=== PATIENT | male | born 1975 | race Caucasian/White ===

== ENCOUNTER 2019-11-16 20:20 | Inpatient (IN) ==
[2019-11-16 20:35] VITALS: BMI 35.9
--- NOTE | 2019-11-16 20:45 | DR.SOBA ---
HPI Time Seen Time Seen by Provider: 11/16/19 20:32 ROS Review of Systems Constitutional: No Symptoms Reported and See HPI Eyes: No Symptoms Reported and See HPI ENTM: No Symptoms Reported and See HPI Respiratoy: No Symptoms Reported and See HPI Cardiovascular: No Symptoms Reported and See HPI Gastrointestinal/Abdominal: No Symptoms Reported and See HPI Genitourinary: No Symptoms Reported and See HPI Neurological: No Symptoms Reported and See HPI Musculoskeletal: No Symptoms Reported and See HPI Integumentary: No Symptoms Reported and See HPI Hematologic/Lymphatic: No Symptoms Reported and See HPI Endocrine: No Symptoms Reported and See HPI Psychiatric: No Symptoms Reported and See HPI All Other Systems: Reviewed and Negative PE Vital Signs Vitals: Temperature 98.5 F Pulse Rate 100 Respiratory Rate 28 Blood Pressure 119/63 O2 Sat by Pulse Oximetry 100 General Limitations: No Limitations General Appearance: Alert and In No Apparent Distress Head Head Exam: Normal Inspection Eyes Eye exam: Normal Appearance ENT ENT Exam: Normal Exam Neck Neck Exam: Normal Inspection Chest Chest Inspection: Normal Inspection Respiratory Respiratory Exam: Normal Lung Sounds Bilat Respiratory Exam: Bilateral: Clear to Auscultation Cardiovascular Cardiovascular Exam: Regular Rate and Normal Rhythm Abdominal Exam Abdominal Exam: Normal Inspection, Normal Bowel Sounds and Soft Extremities Extremities Exam: Normal Inspection Back Back Exam: Normal Inspection Neurologic Neurological Exam: Alert and Oriented X3 Psychiatric Psychiatric Exam: Normal Affect and Normal Mood Skin Skin Exam: Warm, Dry, Intact and Normal Color ROR Labs Reviewed Result Diagrams: 11/18/19 05:33 11/18/19 05:33 Laboratory: WBC 5.7 X10^3/uL (3.6-10.0) 11/16/19 21:06 RBC 5.59 X10^6/uL (4.7-6.0) 11/16/19 21:06 Hgb 16.8 g/dL (13.5-18.0) 11/16/19 21:06 Hct 47.8 % (42.0-54.0) 11/16/19 21:06 MCV 85.5 fL (80.0-100.0) 11/16/19 21:06 MCH 30.0 pg (27.0-34.0) 11/16/19 21:06 MCHC 35.1 g/dL (33.0-35.0) H 11/16/19 21:06 RDW 14.1 % (11.6-16.5) 11/16/19 21:06 Plt Count 163 X10^3/uL (150.0-450.0) 11/16/19 21:06 MPV 8.6 fL (7.4-11.0) 11/16/19 21:06 Neut % (Auto) 65.0 % (42.0-75.0) 11/16/19 21:06 Lymph % (Auto) 25.5 % (21.0-51.0) 11/16/19 21:06 Mora % (Auto) 9.1 % (0.0-13.0) 11/16/19 21:06 Eos % (Auto) 0.1 % (0.9-2.9) L 11/16/19 21:06 Baso % (Auto) 0.3 % (0.2-1.0) 11/16/19 21:06 Neut # (Auto) 3.7 x10^3/uL (2.2-4.8) 11/16/19 21:06 Lymph # (Auto) 1.5 X10^3/uL (1.3-2.9) 11/16/19 21:06 Mora # (Auto) 0.5 x10^3/uL (0.3-0.8) 11/16/19 21:06 Eos # (Auto) 0.0 x10^3/uL (0.0-0.2) 11/16/19 21:06 Baso # (Auto) 0.0 X10^3/uL (0.0-0.1) 11/16/19 21:06 Absolute Nucleated RBC 0.0 /100WBC 11/16/19 21:06 Sample Site Rr 11/16/19 22:28 ABG pH 7.520 (7.35-7.45) H 11/16/19 22:28 ABG pCO2 28.0 mmHg (35.0-45.0) L 11/16/19 22:28 ABG pO2 61.0 mmHg (80.0-100.0) L 11/16/19 22:28 ABG HCO3 22.9 mmol/L (22-26) 11/16/19 22:28 ABG O2 Saturation 94.0 % (90-100) 11/16/19 22:28 ABG Base Excess 1.0 mmol/L (-2.0-2.0) 11/16/19 22:28 Bertram Test Pos 11/16/19 22:28 A-a Gradient 54.0 mmHg 11/16/19 22:28 FiO2 21.0 11/16/19 22:28 Blood Gas Comments Dheeraj well sw 11/16/19 22:28 Sodium 135 mmol/L (136-145) L 11/16/19 21:06 Corrected Sodium TNP 11/16/19 21:06 Potassium 3.4 mmol/L (3.5-5.1) L 11/16/19 21:06 Chloride 98 mmol/L (98-107) 11/16/19 21:06 Carbon Dioxide 24.2 mmol/L (21-32) 11/16/19 21:06 BUN 32 mg/dL (7-18) H 11/16/19 21:06 Creatinine 2.13 mg/dL (0.70-1.30) H 11/16/19 21:06 Est GFR (MDRD) Af Amer 43 (>60) L 11/16/19 21:06 Est GFR (MDRD) Non-Af 36 (>60) L 11/16/19 21:06 Glucose 103 mg/dL (65-99) H 11/16/19 21:06 Lactic Acid 2.0 mmol/L (0.4-2.0) 11/16/19 21:06 Calcium 9.2 mg/dL (8.5-10.1) 11/16/19 21:06 Corrected Calcium TNP 11/16/19 21:06 Ferritin 654 ng/mL (26-388) H 11/16/19 21:06 Total Bilirubin 0.50 mg/dL (0.2-1.0) 11/16/19 21:06 AST 33 Units/L (15-37) 11/16/19 21:06 ALT 48 Units/L (12-78) 11/16/19 21:06 Alkaline Phosphatase 51 Units/L (46-116) 11/16/19 21:06 Lactate Dehydrogenase 270 Units/L (85-227) H 11/16/19 21:06 Creatine Kinase 163 Units/L (39-308) 11/16/19 21:06 CK-MB (CK-2) < 1.0 ng/mL (0-4.0) 11/16/19 21:06 CK/CKMB % Calc 0.6 % (<4) 11/16/19 21:06 Troponin I < 0.02 ng/mL (0-1.5) 11/16/19 21:06 C-Reactive Protein 0.90 mg/L (0-3.0) 11/16/19 21:06 Total Protein 8.6 g/dL (6.4-8.2) H 11/16/19 21:06 Albumin 4.0 g/dL (3.4-5.0) 11/16/19 21:06 Globulin 4.6 g/dL (2.5-4.5) H 11/16/19 21:06 Albumin/Globulin Ratio 0.9 Ratio (1.1-2.1) L 11/16/19 21:06 Specimen Type Clean catch urine 11/16/19 22:12 Urine Color Yellow (YELLOW) 11/16/19 22:12 Urine Appearance Clear (CLEAR) 11/16/19 22:12 Urine pH 5.0 (5.0 - 8.0) 11/16/19 22:12 Ur Specific Samson 1.020 (1.000-1.030) 11/16/19 22:12 Urine Protein 1+ (NEGATIVE) 11/16/19 22:12 Urine Glucose (UA) Negative (NEGATIVE) 11/16/19 22:12 Urine Ketones Negative (NEGATIVE) 11/16/19 22:12 Urine Occult Blood 1+ (NEGATIVE) 11/16/19 22:12 Urine Nitrite Negative (NEGATIVE) 11/16/19 22:12 Urine Bilirubin Negative (NEGATIVE) 11/16/19 22:12 Urine Urobilinogen Normal (NORMAL) 11/16/19 22:12 Ur Leukocyte Esterase Negative (NEGATIVE) 11/16/19 22:12 Urine RBC 0-2 /HPF (0-3) 11/16/19 22:12 Urine WBC None seen /HPF (0-5) 11/16/19 22:12 Ur Squamous Epith Cells Negative /HPF (NEGATIVE) 11/16/19 22:12 Urine Bacteria Negative /HPF (NEGATIVE) 11/16/19 22:12 Ur Culture Indicated? No/not indicated 11/16/19 22:12 Opioid Opioid Risk Tool Total: 0 Total Score Risk Category: Low Risk Copyright: Rodrigo EAGLE predicting aberrant behaviors Diagnosis Discharge Problem: Hypoxia, SOB (shortness of breath), Acute dehydration Pneumonia Qualifiers: Pneumonia type: due to unspecified organism Laterality: bilateral Lung location: lower lobe of lung Qualified Code(s): J18.9 - Pneumonia, unspecified organism Instructions Instructions: Shortness of Breath, Adult, Umfd-mu-Edyn Dehydration, Adult, Wppp-fu-Jltu Home Oxygen Use, Adult Hand Washing, Dqhi-xr-Uzoe Upper Respiratory Infection, Adult, Clal-yx-Ruiz Hypoxia Fever, Adult Droplet Precautions, Pool-hy-Jeii Contact Precautions, Smci-cm-Iocc How to Use a Nebulizer, Adult Hypertension, Pbwo-gd-Wvvu Community-Acquired Pneumonia, Adult, Yzci-sy-Pmwh Forms: Convalescent Plasma Precautions for COVID19 Patient Portal Social Distancing
[2019-11-16 21:22] LABS: BASOPHILS % (AUTO) 0.3 % (0.2-1.0); EOSINOPHILS % (AUTO) 0.1 % (0.9-2.9); HEMATOCRIT 47.8 % (42.0-54.0); HEMOGLOBIN 16.8 g/dL (13.5-18.0); LYMPHOCYTES # (AUTO) 1.5 X10^3/uL (1.3-2.9); LYMPHOCYTES % (AUTO) 25.5 % (21.0-51.0); MEAN CORPUSCULAR HGB CONC 35.1 g/dL (33.0-35.0); MEAN CORPUSCULAR VOLUME 85.5 fL (80.0-100.0); MEAN PLATELET VOLUME 8.6 fL (7.4-11.0); MONOCYTES # (AUTO) 0.5 x10^3/uL (0.3-0.8); MONOCYTES % (AUTO) 9.1 % (0.0-13.0); NEUTROPHILS # (AUTO) 3.7 x10^3/uL (2.2-4.8); PLATELET COUNT 163 X10^3/uL (150.0-450.0); RED BLOOD COUNT 5.59 X10^6/uL (4.7-6.0); RED CELL DISTRIBUTION WIDTH 14.1 % (11.6-16.5); WHITE BLOOD COUNT 5.7 X10^3/uL (3.6-10.0)
--- NOTE | 2019-11-16 21:44 | RAD ---
CHEST, 1 VIEWHISTORY: SOBStudy: Single view of the chest.Comparison:NoneFindings:The cardiomediastinal silhouette is normal. Bilateral interstitial prominence, possible early alveolar infiltrates. No focal consolidations, pleural effusions or pneumothorax. Osseous structures demonstrate no acute abnormality.IMPRESSION:1. Bilateral interstitial prominence and early alveolar infiltrates. Findings may represent atypical infection, including viral etiologies.Electronically signed by: DEJA PELAYO (Nov 16, 2019 21:43:53)
[2019-11-16 21:59] LABS: BLOOD UREA NITROGEN 32 mg/dL (7-18); CALCIUM 9.2 mg/dL (8.5-10.1); CARBON DIOXIDE 24.2 mmol/L (21-32); CHLORIDE 98 mmol/L (98-107); CREATININE 2.13 mg/dL (0.70-1.30); SODIUM 135 mmol/L (136-145); TROPONIN I < 0.02 ng/mL (0-1.5); eGFR NON BLACK RACES 36 (>60)
[2019-11-16 22:19] LABS: ALANINE AMINOTRANSFERASE 48 Units/L (12-78); ALKALINE PHOSPHATASE 51 Units/L (46-116); ASPARTATE AMINO TRANSFERASE 33 Units/L (15-37); CKMB % 0.6 % (<4); CREATINE KINASE 163 Units/L (39-308); CREATINE KINASE MB < 1.0 ng/mL (0-4.0); TOTAL PROTEIN 8.6 g/dL (6.4-8.2)
[2019-11-16 22:27] LABS: BILIRUBIN,URINE NEGATIVE (NEGATIVE); BLOOD/HEMOGLOBIN,URINE 1+ (NEGATIVE); GLUCOSE, URINE NEGATIVE (NEGATIVE); KETONES,URINE NEGATIVE (NEGATIVE); LEUKOCYTE ESTERASE ,URINE NEGATIVE (NEGATIVE); NITRITES,URINE NEGATIVE (NEGATIVE); PROTEIN,URINE 1+ (NEGATIVE); UROBILINOGEN,URINE NORMAL (NORMAL)
[2019-11-16 22:30] LABS: APPEARANCE,URINE CLEAR (CLEAR); COLOR,URINE YELLOW (YELLOW)
[2019-11-16 22:51] LABS: ABG ALLEN TEST POS; ABG HCO3 22.9 mmol/L (22-26)
[2019-11-16 22:56] LABS: BACTERIA,URINE NEGATIVE /HPF (NEGATIVE); RBC,URINE 0-2 /HPF (0-3); SQUAMOUS EPITHELIAL CELL,UR NEGATIVE /HPF (NEGATIVE)
[2019-11-17] MEDS ORDERED: VENTOLIN or PROAIR HFA IN PRN (01:30)
[2019-11-17] MEDS ORDERED: REMDESIVIR (INVESTIGATIONAL DRUG GS-5734) 200 MG in NS 250 ML IV 250 ML IV SCH (01:34)
[2019-11-17] MEDS ORDERED: VENTOLIN or PROAIR HFA ONE (01:47)
[2019-11-17] MEDS ORDERED: NS 250 ML IV 250 ML IV ONE (01:54)
[2019-11-17] MEDS ORDERED: REMDESIVIR (INVESTIGATIONAL DRUG GS-5734) IV ONE (01:54)
[2019-11-17] MEDS ORDERED: NS 100 ML IV 100 ML IV ONE (01:55)
[2019-11-17] MEDS ORDERED: ASCORBIC ACID INJ MULTI-DOSE VIAL IV ONE (01:56)
[2019-11-17] MEDS: DECADRON TAB PO SCH (02:12)
[2019-11-17] MEDS: ZyrTEC TAB 10 MG PO SCH ×2 (02:12→22:50)
[2019-11-17] MEDS: NS 1000 ML 1,000 ML IV SCH ×3 (02:13→18:06)
[2019-11-17] MEDS: ASCORBIC ACID INJ MULTI-DOSE VIAL 1,500 MG in NS 100 ML IV 100 ML IV SCH ×4 (03:30→22:55)
[2019-11-17 05:27] LABS: BASOPHILS % (AUTO) 0.2 % (0.2-1.0); HEMATOCRIT 40.5 % (42.0-54.0); HEMOGLOBIN 14.2 g/dL (13.5-18.0); LYMPHOCYTES # (AUTO) 1.7 X10^3/uL (1.3-2.9); LYMPHOCYTES % (AUTO) 31.5 % (21.0-51.0); MEAN CORPUSCULAR HEMOGLOBIN 29.9 pg (27.0-34.0); MEAN CORPUSCULAR HGB CONC 35.1 g/dL (33.0-35.0); MEAN CORPUSCULAR VOLUME 85.3 fL (80.0-100.0); MEAN PLATELET VOLUME 8.9 fL (7.4-11.0); MONOCYTES # (AUTO) 0.5 x10^3/uL (0.3-0.8); MONOCYTES % (AUTO) 10.4 % (0.0-13.0); NEUTROPHILS % (AUTO) 57.9 % (42.0-75.0); PLATELET COUNT 144 X10^3/uL (150.0-450.0); RED BLOOD COUNT 4.75 X10^6/uL (4.7-6.0); RED CELL DISTRIBUTION WIDTH 13.7 % (11.6-16.5); WHITE BLOOD COUNT 5.3 X10^3/uL (3.6-10.0)
[2019-11-17 05:38] LABS: ALANINE AMINOTRANSFERASE 39 Units/L (12-78); ALBUMIN 3.5 g/dL (3.4-5.0); ALKALINE PHOSPHATASE 44 Units/L (46-116); ASPARTATE AMINO TRANSFERASE 37 Units/L (15-37); BLOOD UREA NITROGEN 31 mg/dL (7-18); CALCIUM 8.4 mg/dL (8.5-10.1); CARBON DIOXIDE 28.2 mmol/L (21-32); CHLORIDE 99 mmol/L (98-107); CREATININE 1.95 mg/dL (0.70-1.30); SODIUM 135 mmol/L (136-145); TOTAL PROTEIN 7.5 g/dL (6.4-8.2); eGFR NON BLACK RACES 40 (>60)
[2019-11-17] MEDS: VENTOLIN or PROAIR HFA IN PRN ×3 (08:00→20:40)
[2019-11-17] MEDS ORDERED: LEVAQUIN PREMIX IV 750 MG 750 MG/150 ML BAG IV ONE (08:58)
[2019-11-17] MEDS ORDERED: PLAQUENIL PO SCH (09:00)
[2019-11-17] MEDS ORDERED: VITAMIN D (1.25MG) PO SCH (09:00)
[2019-11-17] MEDS ORDERED: VITAMIN A PO SCH (09:00)
[2019-11-17] MEDS: ZYLOPRIM PO SCH (09:43)
[2019-11-17] MEDS: ZINC SULFATE PO SCH ×2 (09:43→22:50)
[2019-11-17] MEDS: TRICOR TAB 160 MG PO SCH ×2 (09:44→09:46)
[2019-11-17] MEDS: PriLOSEC PO SCH (09:44)
[2019-11-17] MEDS: LOVENOX INJ 30 MG SYR SC SCH ×2 (09:46→23:15)
[2019-11-17] MEDS: BENICAR TAB 40 MG PO SCH (09:47)
[2019-11-17] MEDS: HYDROCHLOROTHIAZIDE 12.5 MG CAP PO SCH (09:47)
[2019-11-17] MEDS: VIBRAMYCIN 100 MG in D5W 250 ML IV 250 ML IV SCH ×2 (11:16→22:50)
[2019-11-18] MEDS: NS 1000 ML 1,000 ML IV SCH ×4 (05:00→19:25)
[2019-11-18] MEDS: ASCORBIC ACID INJ MULTI-DOSE VIAL 1,500 MG in NS 100 ML IV 100 ML IV SCH ×4 (05:30→20:50)
[2019-11-18 06:17] LABS: BASOPHILS % (AUTO) 0.1 % (0.2-1.0); EOSINOPHILS % (AUTO) 0.1 % (0.9-2.9); HEMATOCRIT 37.5 % (42.0-54.0); HEMOGLOBIN 13.3 g/dL (13.5-18.0); LYMPHOCYTES # (AUTO) 1.1 X10^3/uL (1.3-2.9); LYMPHOCYTES % (AUTO) 26.9 % (21.0-51.0); MEAN CORPUSCULAR HEMOGLOBIN 30.3 pg (27.0-34.0); MEAN CORPUSCULAR HGB CONC 35.4 g/dL (33.0-35.0); MEAN CORPUSCULAR VOLUME 85.7 fL (80.0-100.0); MEAN PLATELET VOLUME 9.2 fL (7.4-11.0); MONOCYTES # (AUTO) 0.5 x10^3/uL (0.3-0.8); MONOCYTES % (AUTO) 12.5 % (0.0-13.0); NEUTROPHILS # (AUTO) 2.5 x10^3/uL (2.2-4.8); NEUTROPHILS % (AUTO) 60.4 % (42.0-75.0); PLATELET COUNT 154 X10^3/uL (150.0-450.0); RED BLOOD COUNT 4.38 X10^6/uL (4.7-6.0); RED CELL DISTRIBUTION WIDTH 13.9 % (11.6-16.5); WHITE BLOOD COUNT 4.2 X10^3/uL (3.6-10.0)
[2019-11-18 06:18] LABS: ALANINE AMINOTRANSFERASE 39 Units/L (12-78); ALBUMIN 3.1 g/dL (3.4-5.0); ALKALINE PHOSPHATASE 41 Units/L (46-116); ASPARTATE AMINO TRANSFERASE 25 Units/L (15-37); BLOOD UREA NITROGEN 22 mg/dL (7-18); CALCIUM 8.6 mg/dL (8.5-10.1); CARBON DIOXIDE 27.4 mmol/L (21-32); CHLORIDE 104 mmol/L (98-107); COR CA(FOR HYPOALB) 9.3 mg/dL (8.5-10.1); COR NA(FOR HYPERGLY) 138 mmol/L (136-145); SODIUM 138 mmol/L (136-145); TOTAL PROTEIN 6.7 g/dL (6.4-8.2); eGFR NON BLACK RACES > 60 (>60)
[2019-11-18] MEDS: VENTOLIN or PROAIR HFA IN PRN ×3 (09:00→17:20)
[2019-11-18] MEDS ORDERED: NS 250 ML IV 250 ML IV ONE (10:56)
[2019-11-18] MEDS: HYDROCHLOROTHIAZIDE 12.5 MG CAP PO SCH (11:00)
[2019-11-18] MEDS: BENICAR TAB 40 MG PO SCH (11:00)
[2019-11-18] MEDS: DECADRON TAB PO SCH (11:00)
[2019-11-18] MEDS: LOVENOX INJ 30 MG SYR SC SCH ×2 (11:00→20:50)
[2019-11-18] MEDS: PriLOSEC PO SCH (11:58)
[2019-11-18] MEDS: REMDESIVIR (INVESTIGATIONAL DRUG GS-5734) 100 MG in NS 250 ML IV 250 ML IV SCH (11:58)
[2019-11-18] MEDS: ZYLOPRIM PO SCH (11:59)
[2019-11-18] MEDS: TRICOR TAB 160 MG PO SCH (11:59)
[2019-11-18] MEDS: VIBRAMYCIN 100 MG in D5W 250 ML IV 250 ML IV SCH ×2 (11:59→21:35)
[2019-11-18] MEDS: ZINC SULFATE PO SCH ×2 (12:02→20:50)
[2019-11-18] MEDS ORDERED: TYLENOL 500 MG TAB EXTRA STRENGTH PO PRN (13:10)
[2019-11-18] MEDS: ZyrTEC TAB 10 MG PO SCH (20:50)
[2019-11-19] MEDS: NS 1000 ML 1,000 ML IV SCH ×3 (02:02→09:15)
[2019-11-19] MEDS: ASCORBIC ACID INJ MULTI-DOSE VIAL 1,500 MG in NS 100 ML IV 100 ML IV SCH ×2 (02:04→08:39)
[2019-11-19 05:58] LABS: ALANINE AMINOTRANSFERASE 34 Units/L (12-78); ALBUMIN 2.8 g/dL (3.4-5.0); ALKALINE PHOSPHATASE 36 Units/L (46-116); ASPARTATE AMINO TRANSFERASE 26 Units/L (15-37); BLOOD UREA NITROGEN 17 mg/dL (7-18); CALCIUM 8.3 mg/dL (8.5-10.1); CARBON DIOXIDE 26.1 mmol/L (21-32); CHLORIDE 107 mmol/L (98-107); COR CA(FOR HYPOALB) 9.3 mg/dL (8.5-10.1); CREATININE 1.25 mg/dL (0.70-1.30); SODIUM 141 mmol/L (136-145); TOTAL PROTEIN 6.3 g/dL (6.4-8.2); eGFR NON BLACK RACES > 60 (>60)
[2019-11-19 06:06] LABS: BASOPHILS % (AUTO) 0.1 % (0.2-1.0); HEMATOCRIT 36.4 % (42.0-54.0); HEMOGLOBIN 12.7 g/dL (13.5-18.0); LYMPHOCYTES % (AUTO) 18.6 % (21.0-51.0); MEAN CORPUSCULAR HEMOGLOBIN 30.2 pg (27.0-34.0); MEAN CORPUSCULAR HGB CONC 34.9 g/dL (33.0-35.0); MEAN CORPUSCULAR VOLUME 86.5 fL (80.0-100.0); MEAN PLATELET VOLUME 8.7 fL (7.4-11.0); MONOCYTES # (AUTO) 0.4 x10^3/uL (0.3-0.8); MONOCYTES % (AUTO) 6.9 % (0.0-13.0); NEUTROPHILS # (AUTO) 3.9 x10^3/uL (2.2-4.8); NEUTROPHILS % (AUTO) 74.4 % (42.0-75.0); PLATELET COUNT 166 X10^3/uL (150.0-450.0); RED BLOOD COUNT 4.21 X10^6/uL (4.7-6.0); RED CELL DISTRIBUTION WIDTH 13.6 % (11.6-16.5); WHITE BLOOD COUNT 5.2 X10^3/uL (3.6-10.0)
[2019-11-19] MEDS: DECADRON TAB PO SCH (08:39)
[2019-11-19] MEDS: BENICAR TAB 40 MG PO SCH (08:39)
[2019-11-19] MEDS: HYDROCHLOROTHIAZIDE 12.5 MG CAP PO SCH (08:39)
[2019-11-19] MEDS: LOVENOX INJ 30 MG SYR SC SCH (08:39)
[2019-11-19] MEDS: REMDESIVIR (INVESTIGATIONAL DRUG GS-5734) 100 MG in NS 250 ML IV 250 ML IV SCH (08:40)
[2019-11-19] MEDS: ZINC SULFATE PO SCH (08:41)
[2019-11-19] MEDS: VIBRAMYCIN 100 MG in D5W 250 ML IV 250 ML IV SCH (08:42)
[2019-11-19] MEDS ORDERED: VITAMIN A PO SCH (09:00)
[2019-11-19] MEDS ORDERED: VITAMIN D3 125 mcg (5,000 UNITS) PO SCH (09:00)
[2019-11-19 09:07] VITALS: BP 131/82
[2019-11-19] MEDS ORDERED: PriLOSEC PO SCH (21:00)
[2019-11-19] MEDS ORDERED: TRICOR TAB 160 MG PO SCH (21:00)
[2019-11-19] MEDS ORDERED: ZYLOPRIM PO SCH (21:00)
== END 2019-11-19 13:15 | disposition home or self-care (01) | DRG 177 ==
LOC: ER 20:20 → MED/SURG 11-17 00:50
PROVIDERS: ADMIT Obstetrics & Gynecology Obstetrics; ATTEND Obstetrics & Gynecology Obstetrics
DX: J12.89 Other viral pneumonia; K21.9 Gastro-esophageal reflux disease without esophagitis; U07.1 COVID-19; I10 Essential (primary) hypertension; E86.0 Dehydration; R06.02 Shortness of breath